=== PATIENT | male | born 1965 | race Hispanic/Latino ===

== ENCOUNTER 2018-09-28 08:47 | Observation (INO) | payer OTHER ==
--- NOTE | 2018-09-28 09:20 | ED PDOC ---
HPI: Seizure Time Seen by Provider: 09/28/18 09:08 Chief Complaint (Nursing): Seizure Chief Complaint (Provider): Seizure History Per: Patient History/Exam Limitations: no limitations Number Of Seizures: One Length Of Seizures (Duration): Seconds (x50) Quality Of Seizure: Generalized Associated Symptoms: denies: Bit Tongue, Incontinence Of Urine, Incontinence Of Stool Additional Complaint(s): 53 year old male with no past medical history or past history of seizures, presents to the emergency department after being brought in by EMS for a seizure. Patient was on a bus and states that he started seeing white and st arted to feel warm. He further states that the next thing he knew was that he was being woken up. As per EMS, he had a x50 second generalized seizure with no tongue biting or incontinence. Patient is currently complaining of nausea and feels tired. PMD: no provider Past Medical History Reviewed: Historical Data, Nursing Documentation, Vital Signs Vital Signs: Last Vital Signs Temp 97.6 F 09/28/18 08:49 Pulse 56 L 09/28/18 08:49 Resp 17 09/28/18 08:49 BP 125/82 09/28/18 08:49 Pulse Ox 98 09/28/18 08:55 - Medical History PMH: No Chronic Diseases Denies: Chronic Kidney Disease, Seizures - Surgical History Surgical History: No Surg Hx - Family History Family History: States: Unknown Family Hx - Social History Ex-Smoker (has not smoked in the last 12 months): No Alcohol: None - Home Medications Home Medications: Ambulatory Orders Medication Instructions Recorded No Known Home Med 09/28/18 - Allergies Allergies/Adverse Reactions: Allergies Allergy/AdvReac Type Severity Reaction Status Date / Time No Known Allergies Allergy Verified 09/28/18 08:54 Review of Systems ROS Statement: Except As Marked, All Systems Reviewed And Found Negative Constitutional: Positive for: Malaise, Other (feels warm) ENT: Negative for: Other (tongue biting) Gastrointestinal: Positive for: Nausea Genitourinary Male: Negative for: Incontinence Physical Exam - Reviewed Nursing Documentation Reviewed: Yes Vital Signs Reviewed: Yes - Physical Exam Appears: Positive for: Non-toxic, No Acute Distress Head Exam: Positive for: ATRAUMATIC, NORMOCEPHALIC Skin: Positive for: Normal Color, Warm, Dry Eye Exam: Positive for: Normal appearance, EOMI, PERRL ENT: Positive for: Normal ENT Inspection Neck: Positive for: Normal, Painless ROM, Supple Cardiovascular/Chest: Positive for: Regular Rate, Rhythm. Negative for: Murmur Respiratory: Positive for: Normal Breath Sounds. Negative for: Respiratory Distress Gastrointestinal/Abdominal: Positive for: Normal Exam, Soft. Negative for: Tenderness Back: Positive for: Normal Inspection. Negative for: L CVA Tenderness, R CVA Tenderness, Vertebral Tenderness Extremity: Positive for: Normal ROM. Negative for: Pedal Edema, Deformity Neurologic/Psych: Positive for: Alert, Oriented (x3). Negative for: Motor/Sens ory Deficits - Laboratory Results Result Diagrams: 09/28/18 09:10 09/28/18 09:10 - ECG O2 Sat by Pulse Oximetry: 98 (RA) Pulse Ox Interpretation: Normal Medical Decision Making Medical Decision Makin Impression: new onset seizure Plan: --CT head without contrast --Chest xray --EKG --CMP --Magnesium --Urine dipstick --CBC with differential --PTT --PT --Urinalysis --Glucose, blood POC 1135 CT FINDINGS: HEMORRHAGE: No intracranial hemorrhage. BRAIN: No mass effect or edema. No atrophy or chronic microvascular ischemic changes. VENTRICLES: Unremarkable. No hydrocephalus. CALVARIUM: Unremarkable. PARANASAL SINUSES: Unremarkable as visualized. No significant inflammatory changes. MASTOID AIR CELLS: Unremarkable as visualized. No inflammatory changes. OTHER FINDINGS: None. IMPRESSION: No evidence of acute intracranial hemorrhage intracranial collection mass effect or midline shift. 11:[address] Carreno, recommends EEG and MRI brain with and without contrast. 1308 chest xray FINDINGS: LUNGS: No active pulmonary disease. PLEURA: No significant pleural effusion identified, no pneumothorax apparent. CARDIOVASCULAR: No atherosclerotic calcification present Normal. OSSEOUS STRUCTURES: No significant abnormalities. VISUALIZED UPPER ABDOMEN: Normal. OTHER FINDINGS: None. IMPRESSION: No active disease. Scribe Attestation: Documented by Hernan Mattson, acting as a scribe for Snehal Coles MD. Provider Scribe Attestation: All medical record entries made by the Scribe were at my direction and personally dictated by me. I have reviewed the chart and agree that the record accurately reflects my personal performance of the history, physical exam, medical decision making, and the department course for this patient. I have also personally directed, reviewed, and agree with the discharge instructions and disposition. Disposition - Disposition Condition: STABLE
[2018-09-28 09:56] LABS: PROTHROMBIN TIME 11.3 Seconds (9.8-13.1)
[2018-09-28 09:59] LABS: PARTIAL THROMBOPLASTIN TIME 31.3 Seconds (25.6-37.1)
[2018-09-28 10:00] LABS: ALB/GLOB RATIO 1.3 (1.0-2.1); ALBUMIN 4.3 g/dL (3.5-5.0); ALT/SGPT 21 U/L (21-72); AST/SGOT 24 U/L (17-59); BLOOD UREA NITROGEN 18 mg/dl (9-20); CALCIUM 9.4 mg/dL (8.4-10.2); GFR NON-AFRICAN AMERICAN > 60
[2018-09-28 10:02] LABS: BASO # 0.1 K/uL (0.0-0.2); BASO % 0.8 % (0.0-2.0); EOS # 0.1 K/uL (0.0-0.7); EOS % 2.1 % (0.0-4.0); HEMOGLOBIN 14.8 g/dL (12.0-18.0); LYMPH # 1.7 K/uL (1.0-4.3); LYMPH % 27.2 % (20.0-40.0); MEAN CELL VOLUME 95.3 fl (80.0-94.0); MEAN CORPUSCULAR HGB CONC 33.6 g/dL (33.0-37.0); MEAN PLATELET VOLUME 8.7 fl (7.2-11.7); MONO # 0.6 K/uL (0.0-0.8); NEUT # 3.8 K/uL (1.8-7.0); NEUT % 60.9 % (50.0-75.0); NRBC % 0.1 % (0.0-0.0); RBC 4.63 Mil/uL (4.40-5.90); RED CELL DISTRIBUTION WIDTH 12.7 % (11.5-14.5); WHITE BLOOD COUNT 6.3 K/uL (4.8-10.8)
--- NOTE | 2018-09-28 11:38 | CT ---
Date of service: 09/28/2018 PROCEDURE: CT HEAD WITHOUT CONTRAST. HISTORY: New onset seizure COMPARISON: None available. TECHNIQUE: Axial computed tomography images were obtained through the head/brain without intravenous contrast. Radiation dose: Total exam DLP = 821.81 mGy-cm. This CT exam was performed using one or more of the following dose reduction techniques: Automated exposure control, adjustment of the mA and/or kV according to patient size, and/or use of iterative reconstruction technique. FINDINGS: HEMORRHAGE: No intracranial hemorrhage. BRAIN: No mass effect or edema. No atrophy or chronic microvascular ischemic changes. VENTRICLES: Unremarkable. No hydrocephalus. CALVARIUM: Unremarkable. PARANASAL SINUSES: Unremarkable as visualized. No significant inflammatory changes. MASTOID AIR CELLS: Unremarkable as visualized. No inflammatory changes. OTHER FINDINGS: None. IMPRESSION: No evidence of acute intracranial hemorrhage intracranial collection mass effect or midline shift.
[2018-09-28 13:04] LABS: URINE BILIRUBIN NEGATIVE (NEGATIVE); URINE BLOOD NEGATIVE (NEGATIVE); URINE CLARITY CLEAR (Clear); URINE COLOR YELLOW (YELLOW); URINE GLUCOSE (UA) NEG (NEGATIVE); URINE LEUKOCYTE ESTERASE NEG Leu/uL (Negative); URINE PROTEIN NEGATIVE (NEGATIVE); URINE UROBILINOGEN 0.2-1.0 mg/dL (0.2-1.0)
--- NOTE | 2018-09-28 13:11 | RAD ---
Date of service: 09/28/2018 HISTORY: Seizure COMPARISON: No prior. FINDINGS: LUNGS: No active pulmonary disease. PLEURA: No significant pleural effusion identified, no pneumothorax apparent. CARDIOVASCULAR: No atherosclerotic calcification present Normal. OSSEOUS STRUCTURES: No significant abnormalities. VISUALIZED UPPER ABDOMEN: Normal. OTHER FINDINGS: None. IMPRESSION: No active disease.
[2018-09-28] MEDS ORDERED: Gadodiamide 287 MG/ML VIAL (15ML) IV ONE (13:40)
--- NOTE | 2018-09-28 16:31 | MRI ---
Date of service: 09/28/2018 PROCEDURE: MRI BRAIN WITHOUT CONTRAST HISTORY: New onset seizure COMPARISON: Comparison is made with the previous CT dated 09/28/2018 TECHNIQUE: Multiplanar, multisequence MR images of the brain were obtained without intravenous contrast enhancement. Incomplete study. Only axial DWI axial T2 FLAIR axial T2 axial GRE and ADC map images were obtained. FINDINGS: HEMORRHAGE: None DWI: No evidence of an acute or early subacute infarction. BRAIN PARENCHYMA: No mass effect or edema. No atrophy or chronic microvascular ischemic changes. VENTRICLES: Unremarkable. No hydrocephalus. CRANIUM: Unremarkable. ORBITS: Grossly unremarkable. PARANASAL SINUSES/MASTOIDS: Clear VASCULAR SYSTEM: Skull base flow voids intact. OTHER FINDINGS: None. IMPRESSION: Incomplete study. No sagittal images were obtained. No evidence of acute infarct or intracranial hemorrhage. No evidence of mass lesion mass effect or midline shift. No evidence of hydrocephalus.
[2018-09-28 16:42] LABS: BARBITURATES, UR NEGATIVE (NEGATIVE); BENZODIAZEPINES, UR NEGATIVE (NEGATIVE); OPIATES, UR NEGATIVE (NEGATIVE); PHENCYCLIDINE, UR NEGATIVE (NEGATIVE)
[2018-09-28] MEDS ORDERED: Iodixanol 320 MG/ML 100 ML BOTTLE IV ONE (17:29)
[2018-09-28] MEDS ORDERED: Sodium Chloride 0.9% 50 ML IV ONE (17:29)
--- NOTE | 2018-09-28 17:58 | CARD ---
APPROVED REPORT Date of service: 09/28/2018 EKG Measurement Heart [id number] <Conclusion> Sinus bradycardia Low voltage QRS Borderline ECG
[2018-09-29 02:15] VITALS: RESP 18
[2018-09-29 05:13] VITALS: O2SAT 97
[2018-09-29 05:29] LABS: HEMOGLOBIN 14.4 g/dL (12.0-18.0); MEAN CELL VOLUME 93.3 fl (80.0-94.0); MEAN CORPUSCULAR HEMOGLOBIN 32.2 pg (27.0-31.0); MEAN CORPUSCULAR HGB CONC 34.5 g/dL (33.0-37.0); RBC 4.46 Mil/uL (4.40-5.90); WHITE BLOOD COUNT 9.9 K/uL (4.8-10.8)
[2018-09-29 05:35] LABS: ALB/GLOB RATIO 1.3 (1.0-2.1); ALBUMIN 3.8 g/dL (3.5-5.0); ALT/SGPT 27 U/L (21-72); AST/SGOT 20 U/L (17-59); BLOOD UREA NITROGEN 17 mg/dl (9-20); GFR NON-AFRICAN AMERICAN 58; HDL CHOLESTEROL 34 MG/DL (30-70)
[2018-09-29 05:44] LABS: LDL CHOLESTEROL 113 mg/dL (0-129)
[2018-09-29 05:50] LABS: T4 7.11 ug/dl (5.5-11.0)
[2018-09-29 11:49] VITALS: BP 118/80; PULSE 69; TEMP 98.1
--- NOTE | 2018-09-29 11:51 | CP.PCM.PN ---
Subjective - Date & Time of Evaluation Date of Evaluation: 09/29/18 Time of Evaluation: 11:50 - Subjective Subjective: Neurology Follow-Up Note: Mr. Lezama was evaluated this afternoon at bedside. He is eager to go home. He is currently connected to the VEEG (was started this morning). He admits to general fatigue but associates this feeling with being in the hospital. Denies h/a, dizziness, visual changes, chest pain, palpitations, sob, cough, abd pain, n/v/d. Objective - Vital Signs/Intake and Output Vital Signs (last 24 hours): Temp Pulse Resp BP Pulse Ox 98.1 F 69 18 118/80 97 09/29/18 11:49 09/29/18 11:49 09/29/18 11:49 09/29/18 11:49 09/29/18 11:49 - Labs Labs: 09/29/18 04:25 09/29/18 04:25 PT 11.3 Seconds (9.8-13.1) 09/28/18 09:10 INR 1.0 09/28/18 09:10 APTT 31.3 Seconds (25.6-37.1) 09/28/18 09:10 - Constitutional Appears: Well, Non-toxic, No Acute Distress - Head Exam Head Exam: ATRAUMATIC, NORMAL INSPECTION, NORMOCEPHALIC - Eye Exam Eye Exam: EOMI, Normal appearance, PERRL Pupil Exam: NORMAL ACCOMODATION, PERRL - ENT Exam ENT Exam: Mucous Membranes Moist, Normal Exam - Neck Exam Neck Exam: Full ROM, Normal Inspection - Respiratory Exam Respiratory Exam: NORMAL BREATHING PATTERN - Extremities Exam Extremities Exam: Full ROM, Normal Inspection. absent: Calf Tenderness, Pedal Edema - Back Exam Back Exam: Full ROM - Neurological Exam Neurological Exam: Alert, Awake, CN II-XII Intact, Oriented x3 Neuro motor strength exam: Left Upper Extremity: 5, Right Upper Extremity: 5, Left Lower Extremity: 5, Right Lower Extremity: 5 Additional comments: Speech clear, fluid Follows all commands No motor or sensory deficits noted No ataxia or dysmetria No tremors or clonus - Psychiatric Exam Psychiatric exam: Normal Affect, Normal Mood - Skin Skin Exam: Normal Color Assessment and Plan (1) New onset seizure Assessment & Plan: Imaging reviewed: -EEG: results pending -CTA Head and Neck (09/28/18): Unremarkable CT Angiography of the Brain. Trace atherosclerotic plaque is seen at the bilateral carotid bulbs with bilateral common and internal carotid arteries as well as bilateral vertebral arteries widely patent. -MRI Brain (09/28/28): Incomplete study. No sagittal images were obtained. No evidence of acute infarct or intracranial hemorrhage. No evidence of mass lesion mass effect or midline shift. No evidence of hydrocephalus. -CT Head (09/28/18): No evidence of acute intracranial hemorrhage intracranial collection mass effect or midline shift. -Seizure precautions. -Will f/u with results for VEEG once completed--if normal, pt may be d/c'd after being seen by Dr. Carreno this afternoon. -Notify neuro team of any acute changes in patient's condition. Case discussed with Dr. Carreno Status: Acute
--- NOTE | 2018-09-29 11:55 | CT ---
Date of service: 09/28/2018 PROCEDURE: CT Angiography of the Brain and Neck. HISTORY: New onset seizure COMPARISON: None available. TECHNIQUE: CT angiography of the head and neck was performed following intravenous contrast administration. Coronal and sagittal maximum intensity projection reformatted images were generated. Contrast Dose: Visipaque 320, 99 cc Radiation dose: Total exam DLP = 515.43 mGy-cm. This CT exam was performed using one or more of the following dose reduction techniques: Automated exposure control, adjustment of the mA and/or kV according to patient size, and/or use of iterative reconstruction technique. FINDINGS: INTERNAL CEREBRAL ARTERIES: Unremarkable. The skull base, petrous, cavernous and supraclinoid segments are bilaterally widely patent. ANTERIOR CEREBRAL ARTERIES: Unremarkable. A1 and A2 segments are widely patent. Smaller distal branches unremarkable, as visualized. MIDDLE CEREBRAL ARTERIES: Unremarkable. M1 and M2 segments are widely patent. Perisylvian branches grossly symmetric. POSTERIOR CIRCULATION: Basilar Artery: Unremarkable. Distal Vertebral Arteries: Unremarkable. Posterior Cerebral Arteries: Unremarkable. Posterior Inferior Cerebellar Arteries: Unremarkable. NECK CTA: Common Carotid arteries: The bilateral common carotid appear widely patent from their origins to their bifurcations with no significant stenosis appreciated. Trace atherosclerotic plaques in the left greater than right carotid bulbs. No evidence to suggest common carotid artery dissection. Internal Carotid arteries: No significant stenosis is appreciated throughout the cervical internal carotid artery segments bilaterally and there is no evidence of dissection either. External Carotid arteries: Appear unremarkable bilaterally. Vertebral arteries: The bilateral vertebral arteries appear normal in caliber from their origins to their distal cervical segments. No significant stenosis or definite pattern of dissection. ANEURYSM/ VASCULAR MALFORMATIONS: None. OTHER FINDINGS: None. IMPRESSION: Unremarkable CT Angiography of the Brain. Trace atherosclerotic plaque is seen at the bilateral carotid bulbs with bilateral common and internal carotid arteries as well as bilateral vertebral arteries widely patent.
--- NOTE | 2018-09-29 14:41 | CP.PCM.HP ---
History of Present Illness - History of Present Illness History of Present Illness: CC: Seizure. 53 y/o M, No chronic PMHx, [facility] via EMS to be evaluated for Seizure/convulsions while in a bus, lasting about 50 seconds on DOA, denied tongue bite, but associated LOC with activity, witnessed by people around him while in the bus. Aggravated symptoms: Headache, nausea, weakness. Aggravated factor: Not in medication for seizure (new onset). Pt denied: Fever, chills, vision change, v/d, abdominal pain, urinary symptoms, CP, SOB, cough, sick contact, recent travel out of [facility]. Head CT: No acute intracranial hemorrhage, mass effect or midline shift. Head/Neck CTA: Unremarkable. Brain MRI: Incomplete study, no sagittal images were obtained, no evidence of acute infarct, hemorrhage, mass lesion, mass effect or midline shift, no hydrocephalus. CXR: No active disease. EKG: Sinus Bradycardia. Present on Admission - Present on Admission Any Indicators Present on Admission: No Review of Systems - Constitutional Constitutional: Headache, Weakness - EENT Eyes: Other (negative) Ears: Other (negative) Nose/Mouth/Throat: Other (negative) - Cardiovascular Cardiovascular: Other (negative) - Respiratory Respiratory: Other (negative) - Gastrointestinal Gastrointestinal: Nausea - Genitourinary Genitourinary: Other (negative) - Musculoskeletal Musculoskeletal: Other (negative) - Integumentary Integumentary: Other (negative) - Neurological Neurological: Convulsions, Weakness, Other (LOC) - Psychiatric Psychiatric: Other (negative) - Endocrine Endocrine: Other (negative) - Hematologic/Lymphatic Hematologic: Other (negative) Past Patient History - Past Medical History & Family History Past Medical History?: No Pertinent Family History: Unknown - Past Social History Smoking Status: Never Smoked Alcohol: None Drugs: Denies Home Situation {Lives}: With Family - CARDIAC Hx Cardiac Disorders: No - PULMONARY Hx Respiratory Disorders: No - NEUROLOGICAL Hx Neurological Disorder: No - HEENT Hx HEENT Problems: No - RENAL Hx Chronic Kidney Disease: No - ENDOCRINE/METABOLIC Hx Endocrine Disorders: No - HEMATOLOGICAL/ONCOLOGICAL Hx Blood Disorders: No Hx AIDS: No Hx Human Immunodeficiency Virus (HIV): No - INTEGUMENTARY Hx Dermatological Problems: No - MUSCULOSKELETAL/RHEUMATOLOGICAL Hx Musculoskeletal Disorders: Yes Hx Falls: Yes - GASTROINTESTINAL Hx Gastrointestinal Disorders: No - GENITOURINARY/GYNECOLOGICAL Hx Genitourinary Disorders: No - PSYCHIATRIC Hx Psychophysiologic Disorder: No Hx Substance Use: No - SURGICAL HISTORY Hx Surgeries: Yes Other/Comment: knee surgery - ANESTHESIA Hx Anesthesia: Yes Hx Anesthesia Reactions: No Meds Allergies/Adverse Reactions: Allergies Allergy/AdvReac Type Severity Reaction Status Date / Time No Known Allergies Allergy Verified 09/28/18 08:54 Physical Exam - Constitutional Appears: No Acute Distress - Head Exam Head Exam: NORMAL INSPECTION - Eye Exam Eye Exam: PERRL - ENT Exam ENT Exam: Normal Exam - Neck Exam Neck exam: Positive for: Normal Inspection - Respiratory Exam Respiratory Exam: NORMAL BREATHING PATTERN - Cardiovascular Exam Cardiovascular Exam: REGULAR RHYTHM - GI/Abdominal Exam GI & Abdominal Exam: Normal Bowel Sounds, Soft - Extremities Exam Extremities exam: Positive for: normal inspection - Back Exam Back exam: NORMAL INSPECTION - Neurological Exam Neurological exam: Alert, Oriented x3 Additional comments: No motor/sensory deficit. - Psychiatric Exam Psychiatric exam: Normal Affect, Normal Mood - Skin Skin Exam: Warm Results - Vital Signs Recent Vital Signs: Last Vital Signs Temp 98.1 F 09/29/18 11:49 Pulse 69 09/29/18 11:49 Resp 18 09/29/18 11:49 BP 118/80 09/29/18 11:49 Pulse Ox 97 09/29/18 11:49 reviewed Samuel - Labs Result Diagrams: 09/29/18 04:25 09/29/18 04:25 Labs: Laboratory Results - last 24 hr 09/28/18 09/28/18 09/29/18 09:05 16:15 04:25 WBC 9.9 D RBC 4.46 Hgb 14.4 Hct 41.6 MCV 93.3 D MCH 32.2 H MCHC 34.5 RDW 13.0 Plt Count 235 Sodium Potassium Chloride Carbon Dioxide Anion Gap BUN Creatinine Est GFR ( Amer) Est GFR (Non-Af Amer) POC Glucose (mg/dL) 141 H Random Glucose Calcium Magnesium Total Bilirubin AST ALT Alkaline Phosphatase Total Protein Albumin Globulin Albumin/Globulin Ratio Triglycerides Cholesterol LDL Cholesterol Direct HDL Cholesterol Thyroxine (T4) TSH 3rd Generation Urine Opiates Screen Negative Urine Methadone Screen Negative Ur Barbiturates Screen Negative Ur Phencyclidine Scrn Negative Ur Amphetamines Screen Negative U Benzodiazepines Scrn Negative U Oth Cocaine Metabols Negative U Cannabinoids Screen Negative 09/29/18 04:25 WBC RBC Hgb Hct MCV MCH MCHC RDW Plt Count Sodium 139 Potassium 4.2 Chloride 100 Carbon Dioxide 30 Anion Gap 13 BUN 17 Creatinine 1.3 Est GFR ( Amer) > 60 Est GFR (Non-Af Amer) 58 POC Glucose (mg/dL) Random Glucose 108 Calcium 9.0 Magnesium 2.1 Total Bilirubin 0.4 AST 20 ALT 27 Alkaline Phosphatase 58 Total Protein 6.8 Albumin 3.8 Globulin 3.0 Albumin/Globulin Ratio 1.3 Triglycerides 121 Cholesterol 177 LDL Cholesterol Direct 113 HDL Cholesterol 34 Thyroxine (T4) 7.11 TSH 3rd Generation 1.20 Urine Opiates Screen Urine Methadone Screen Ur Barbiturates Screen Ur Phencyclidine Scrn Ur Amphetamines Screen U Benzodiazepines Scrn U Oth Cocaine Metabols U Cannabinoids Screen reviewed J.P. - EKG Data EKG comments: reviewed J.P. - Imaging and Cardiology CT scan - head Status: Report reviewed by me (Jennifer.) MRI - head Status: Report reviewed by me (AsaelP.) CTA Head-Neck Status: Report reviewed by me (J.P.) Chest x-ray Status: Report reviewed by me (J.P.) Assessment & Plan (1) New onset seizure Status: Resolved Priority: High - Assessment and Plan (Free Text) Plan: Patient cleared by Neurologist to be discharged, Head CT ,Brain MRI, CTA Head-Neck, EEG all negative, Patient cleared by Neurologist, improved and stable to be discharged, see inst/med SERGIO, f/u PMD one week , call Neurologiast for f/u appt - Date & Time Date: 09/29/18 Time: 12:00
== END 2018-09-29 15:24 | disposition home or self-care (01) ==
LOC: H.ER 08:47 → H.ERHOLD 11:56 → H.TEL 18:50
PROVIDERS: ADMIT Internal Medicine Pulmonary Disease; ATTEND Internal Medicine Pulmonary Disease
DX: R56.9 Unspecified convulsions (principal); R00.1 Bradycardia, unspecified
CPT/HCPCS: 36415; 70450; 70496; 70498; 70551; 71045; 80053; 80061; 80324; 80345; 80346; 80349; 80353; 80358; 80361; 81003; 82948; 83735; 83992; 84436; 84443; 85025; 85027; 85610; 85730; 93005; 96374; 99285; G0378; J1885; Q9967